=== PATIENT | female | born 1990 | race Caucasian/White ===

== ENCOUNTER 2024-02-25 23:24 | Outpatient (CLI) | payer OTHER ==
[~2024-02-25] VITALS: Ht 165.1 cm; Wt 79.2 kg
[2024-02-25] MEDS ORDERED: PRENTAB9 PO (23:41)
== END 2024-02-26 00:35 | disposition home or self-care (01) ==
LOC: M LDO 23:24
PROVIDERS: ATTEND Specialist
DX: O36.8130 Decreased fetal movements, third trimester, not applicable or unspecified (principal); Z3A.35 35 weeks gestation of pregnancy
CPT/HCPCS: 59025; G0463